=== PATIENT | male | born 1955 | race Hispanic/Latino ===

== ENCOUNTER 2023-11-04 12:46 | Inpatient (IN) | payer BC, MEDICARE, OTHER ==
[2023-11-04] VITALS (8 sets, daily range): BP systolic 96–141; BP diastolic 59–76; PULSE 46–52; RESP 16
[~2023-11-04] VITALS: Ht 170.2 cm; Wt 68.3 kg
[~2023-11-04 12:46] MED LIST: ACET1TAB12 PO; AMLO-257 PO; ASPI-556 PO; CHOL200026 PO; METF-444 PO; METO-408 PO; PRAV10TA39 PO; QUIN40TA37 PO
[2023-11-04 13:15] LABS: BASOPHILS # (AUTO) 0.05 K/uL (0.00-0.20); BASOPHILS % (AUTO) 0.7 % (0.0-5.0); EOSINOPHILS # (AUTO) 0.07 K/uL (0.00-0.70); HEMATOCRIT 42.2 % (42-54); IMMATURE GRANULOCYTE ABSOLUTE 0.02 K/uL (0-1); LYMPHOCYTES # (AUTO) 1.8 K/uL (1.0-4.8); LYMPHOCYTES % (AUTO) 23.8 % (21.0-51.0); MEAN CORPUSCULAR HEMOGLOBIN 30.3 pg (27.0-33.0); MEAN CORPUSCULAR HGB CONC 36.5 g/dL (32.0-36.0); MEAN CORPUSCULAR VOLUME 82.9 fL (79-99); MONOCYTES # (AUTO) 0.6 K/uL (0.1-1.0); NEUTROPHILS # (AUTO) 4.9 K/uL (1.8-7.7); NEUTROPHILS % (AUTO) 66.2 % (40.0-77.0); PLATELET COUNT (AUTO) 176 K/uL (130-400); RED BLOOD CELL COUNT(AUTO) 5.09 MIL/uL (4.50-6.20); RED CELL DISTRIBUTION WIDTH 12.5 % (11.0-15.5); WHITE BLOOD COUNT (AUTO) 7.3 K/uL (4.8-10.8)
[2023-11-04] MEDS: NITROGLYCERIN 0.4 MG SL TAB SL PRN (13:23)
[2023-11-04] MEDS: ASPIRIN 325MG EC TAB PO ONE (13:23)
[2023-11-04 13:47] LABS: BILIRUBIN,TOTAL 0.8 mg/dL (0.2-1.0); POTASSIUM 3.8 mmol/L (3.5-5.1); TOTAL PROTEIN, SERUM 7.7 g/dL (6.0-8.3)
[2023-11-04] MEDS ORDERED: MORPHINE 2 MG SYG IVP PRN (15:00)
[2023-11-04] MEDS: ENOXAPARIN SODIUM 80 MG/0.8 ML SQ ONE (15:46)
[2023-11-04 15:48] LABS: HEMOGLOBIN A1C 7.1 % (4.0-6.0)
[2023-11-04] MEDS ORDERED: ATOR40TA69 PO (16:00)
[2023-11-04] MEDS ORDERED: CLOP75TA32 PO (16:00)
[2023-11-04] MEDS ORDERED: EPLE25TA10 PO (16:00)
[2023-11-04] MEDS ORDERED: LISI40TA9 PO (16:00)
[2023-11-04] MEDS ORDERED: EMPA25TA PO (16:00)
[2023-11-04] MEDS ORDERED: CARV25TA PO (16:00)
[2023-11-04] MEDS ORDERED: IOHEXOL 350 MG/ML 100ML INFUS..BTL IV ONE (19:06)
[2023-11-04] MEDS ORDERED: IOHEXOL-350 50ML VIAL IV ONE (19:06)
[2023-11-04] MEDS ORDERED: MIDAZOLAM HCL 1 MG/ML 2ML VIAL ONE (19:06)
[2023-11-04] MEDS ORDERED: LIDOCAINE HCL 400MG/20ML VIAL ONE (19:06)
[2023-11-04] MEDS ORDERED: HEPARIN 10,000 UNIT/10ML (1,000 UNIT/ML) VIAL ONE (19:07)
[2023-11-04] MEDS ORDERED: VERAPAMIL HCL 2.5 MG/ML VIAL ONE (19:07)
[2023-11-04] MEDS ORDERED: NITROGLYCERIN 50MG VIAL ONE (19:07)
[2023-11-04] MEDS ORDERED: FENTANYL CITRATE PF 50 MCG/1 ML 2ML VIAL ONE (19:13)
[2023-11-04] MEDS: METOPROLOL TARTRATE 25 MG TAB PO SCH (21:00)
[2023-11-04] MEDS: 0.9%NACL 1000ML 1,000 ML IV SCH (21:53)
[2023-11-05 03:17] VITALS: BP 127/68; PULSE 45; RESP 16
[2023-11-05] MEDS ORDERED: POTASSIUM CHLORIDE 20MEQ/100ML 100 ML IV PRN (06:30)
[2023-11-05 06:49] LABS: BASOPHILS # (AUTO) 0.06 K/uL (0.00-0.20); BASOPHILS % (AUTO) 0.6 % (0.0-5.0); EOSINOPHILS # (AUTO) 0.06 K/uL (0.00-0.70); EOSINOPHILS % (AUTO) 0.6 % (0.0-8.0); HEMATOCRIT 42.7 % (42-54); IMMATURE GRANULOCYTE ABSOLUTE 0.02 K/uL (0-1); LYMPHOCYTES # (AUTO) 1.7 K/uL (1.0-4.8); LYMPHOCYTES % (AUTO) 17.4 % (21.0-51.0); MEAN CORPUSCULAR HEMOGLOBIN 29.9 pg (27.0-33.0); MEAN CORPUSCULAR HGB CONC 35.4 g/dL (32.0-36.0); MEAN CORPUSCULAR VOLUME 84.6 fL (79-99); MONOCYTES # (AUTO) 0.9 K/uL (0.1-1.0); MONOCYTES % (AUTO) 9.7 % (3.0-13.0); NEUTROPHILS # (AUTO) 6.9 K/uL (1.8-7.7); NEUTROPHILS % (AUTO) 71.5 % (40.0-77.0); PLATELET COUNT (AUTO) 169 K/uL (130-400); RED BLOOD CELL COUNT(AUTO) 5.05 MIL/uL (4.50-6.20); RED CELL DISTRIBUTION WIDTH 12.8 % (11.0-15.5); WHITE BLOOD COUNT (AUTO) 9.7 K/uL (4.8-10.8)
[2023-11-05 07:00] VITALS: BP 164/78; PULSE 57; RESP 16
[2023-11-05 07:02] LABS: CREATININE 0.8 mg/dL (0.5-1.5); MAGNESIUM 1.7 mg/dL (1.80-2.40); POTASSIUM 3.5 mmol/L (3.5-5.1)
[2023-11-05] MEDS: LISINOPRIL 40 MG TABLET PO SCH (09:30)
[2023-11-05] MEDS: ATORVASTATIN 40 MG TABLET PO SCH (09:30)
[2023-11-05] MEDS: CLOPIDOGREL 75MG TAB PO SCH (09:30)
[2023-11-05] MEDS: ASPIRIN 81MG CHEW TAB PO SCH (09:31)
[2023-11-05 11:00] VITALS: BP 138/78; PULSE 53; RESP 16
[2023-11-05 16:00] VITALS: BP 154/84; PULSE 63; RESP 16
[2023-11-05 19:54] VITALS: BP 145/76; PULSE 75; RESP 18
[2023-11-05 23:59] VITALS: BP 131/74; PULSE 60; RESP 18
[2023-11-06 04:23] VITALS: BP 124/74; PULSE 42; RESP 18
[2023-11-06 04:48] LABS: BASOPHILS # (AUTO) 0.04 K/uL (0.00-0.20); BASOPHILS % (AUTO) 0.5 % (0.0-5.0); EOSINOPHILS # (AUTO) 0.08 K/uL (0.00-0.70); HEMATOCRIT 41.9 % (42-54); IMMATURE GRANULOCYTE ABSOLUTE 0.02 K/uL (0-1); LYMPHOCYTES # (AUTO) 1.9 K/uL (1.0-4.8); LYMPHOCYTES % (AUTO) 22.4 % (21.0-51.0); MEAN CORPUSCULAR HEMOGLOBIN 29.8 pg (27.0-33.0); MEAN CORPUSCULAR VOLUME 82.8 fL (79-99); MONOCYTES # (AUTO) 1.1 K/uL (0.1-1.0); MONOCYTES % (AUTO) 13.2 % (3.0-13.0); NEUTROPHILS # (AUTO) 5.3 K/uL (1.8-7.7); NEUTROPHILS % (AUTO) 62.7 % (40.0-77.0); PLATELET COUNT (AUTO) 182 K/uL (130-400); RED BLOOD CELL COUNT(AUTO) 5.06 MIL/uL (4.50-6.20); RED CELL DISTRIBUTION WIDTH 12.7 % (11.0-15.5); WHITE BLOOD COUNT (AUTO) 8.4 K/uL (4.8-10.8)
[2023-11-06 05:04] LABS: MAGNESIUM 1.9 mg/dL (1.80-2.40); PHOSPHORUS 4.4 mg/dL (2.5-4.9); POTASSIUM 3.8 mmol/L (3.5-5.1)
[2023-11-06 07:00] VITALS: BP 128/72; PULSE 48; RESP 16
[2023-11-06 11:00] VITALS: BP 157/82; PULSE 60; RESP 20
[2023-11-06 16:00] VITALS: BP 154/81; PULSE 54; RESP 20
[2023-11-06 20:00] VITALS: O2SAT 95
[2023-11-06 20:02] VITALS: BP 156/76; PULSE 54; RESP 18
[2023-11-07] VITALS (40 sets, daily range): BP systolic 113–168; BP diastolic 62–101; PULSE 45–80; RESP 9–27; O2SAT 98–100
[2023-11-07 05:30] LABS: BASOPHILS # (AUTO) 0.05 K/uL (0.00-0.20); BASOPHILS % (AUTO) 0.5 % (0.0-5.0); EOSINOPHILS # (AUTO) 0.11 K/uL (0.00-0.70); EOSINOPHILS % (AUTO) 1.1 % (0.0-8.0); HEMATOCRIT 40.3 % (42-54); IMMATURE GRANULOCYTE ABSOLUTE 0.04 K/uL (0-1); LYMPHOCYTES # (AUTO) 1.9 K/uL (1.0-4.8); LYMPHOCYTES % (AUTO) 18.3 % (21.0-51.0); MEAN CORPUSCULAR HEMOGLOBIN 29.9 pg (27.0-33.0); MEAN CORPUSCULAR VOLUME 83.1 fL (79-99); MONOCYTES # (AUTO) 1.3 K/uL (0.1-1.0); MONOCYTES % (AUTO) 12.4 % (3.0-13.0); NEUTROPHILS # (AUTO) 6.9 K/uL (1.8-7.7); NEUTROPHILS % (AUTO) 67.3 % (40.0-77.0); PLATELET COUNT (AUTO) 177 K/uL (130-400); RED BLOOD CELL COUNT(AUTO) 4.85 MIL/uL (4.50-6.20); RED CELL DISTRIBUTION WIDTH 12.7 % (11.0-15.5); WHITE BLOOD COUNT (AUTO) 10.2 K/uL (4.8-10.8)
[2023-11-07 05:50] LABS: POTASSIUM 3.4 mmol/L (3.5-5.1)
[2023-11-07] MEDS: KCL 20 MEQ ERTAB PO PRN (10:01)
[2023-11-07] MEDS: AMLODIPINE 5 MG TAB PO SCH (10:02)
[2023-11-07] MEDS: ENOXAPARIN SODIUM 40 MG/0.4 ML SYRINGE SQ SCH (10:03)
[2023-11-07] MEDS: METOPROLOL TARTRATE 1 MG/ML 5ML VIAL IV ONE (12:24)
[2023-11-07] MEDS: NITROGLYCERIN 50MG/D5W 250ML 250 BOT IV SCH (13:43)
[2023-11-07] MEDS: HEPARIN 5,000 UNIT VIAL IV PRN (14:24)
[2023-11-08] VITALS (98 sets, daily range): BP systolic 91–161; BP diastolic 50–96; PULSE 50–87; RESP 10–50; O2SAT 98–99
[2023-11-08 04:49] LABS: BASOPHILS # (AUTO) 0.05 K/uL (0.00-0.20); BASOPHILS % (AUTO) 0.4 % (0.0-5.0); EOSINOPHILS # (AUTO) 0.04 K/uL (0.00-0.70); EOSINOPHILS % (AUTO) 0.3 % (0.0-8.0); HEMATOCRIT 41.6 % (42-54); IMMATURE GRANULOCYTE ABSOLUTE 0.04 K/uL (0-1); LYMPHOCYTES # (AUTO) 2.2 K/uL (1.0-4.8); MEAN CORPUSCULAR HEMOGLOBIN 30.1 pg (27.0-33.0); MEAN CORPUSCULAR HGB CONC 36.3 g/dL (32.0-36.0); MONOCYTES # (AUTO) 1.6 K/uL (0.1-1.0); MONOCYTES % (AUTO) 13.8 % (3.0-13.0); NEUTROPHILS # (AUTO) 7.7 K/uL (1.8-7.7); NEUTROPHILS % (AUTO) 66.2 % (40.0-77.0); PLATELET COUNT (AUTO) 193 K/uL (130-400); RED BLOOD CELL COUNT(AUTO) 5.01 MIL/uL (4.50-6.20); RED CELL DISTRIBUTION WIDTH 12.7 % (11.0-15.5); WHITE BLOOD COUNT (AUTO) 11.7 K/uL (4.8-10.8)
[2023-11-08 05:12] LABS: CREATININE 0.8 mg/dL (0.5-1.5); POTASSIUM 3.5 mmol/L (3.5-5.1)
[2023-11-08] MEDS: POTASSIUM CHLORIDE 10% ELIXIR 20 MEQ/15 ML UDCUP PO PRN (08:04)
[2023-11-08] MEDS: MAGNESIUM 2GM PREMIX 50ML 50 ML IV PRN (08:09)
[2023-11-08] MEDS: DOCUSATE NA 100MG/10ML UDCUP PO ONE (11:12)
[2023-11-08] MEDS: HEPARIN 25,000 UNITS/250ML D5W 250 ML IV SCH (11:20)
[2023-11-08 17:11] LABS: INR 0.99 (0.85-1.15); PROTHROMBIN TIME 11.5 SEC (9.6-11.6)
[2023-11-08 17:36] LABS: PARTIAL THROMBOPLASTIN TIME 45.8 SEC (26.3-35.5)
[2023-11-08] MEDS: HEPARIN 5,000 UNIT VIAL IV STA (17:53)
[2023-11-08] MEDS: METOPROLOL TARTRATE 25 MG TAB PO SCH (20:08)
[2023-11-09] VITALS (77 sets, daily range): BP systolic 106–174; BP diastolic 57–124; PULSE 54–86; RESP 12–75; O2SAT 96–99
[2023-11-09 07:32] LABS: MEAN CORPUSCULAR HEMOGLOBIN 30.3 pg (27.0-33.0); MEAN CORPUSCULAR HGB CONC 35.6 g/dL (32.0-36.0); MEAN CORPUSCULAR VOLUME 85.2 fL (79-99); PLATELET COUNT (AUTO) 196 K/uL (130-400); RED BLOOD CELL COUNT(AUTO) 4.58 MIL/uL (4.50-6.20); RED CELL DISTRIBUTION WIDTH 12.7 % (11.0-15.5); WHITE BLOOD COUNT (AUTO) 9.9 K/uL (4.8-10.8)
[2023-11-09 07:39] LABS: CREATININE 0.9 mg/dL (0.5-1.5); POTASSIUM 3.6 mmol/L (3.5-5.1)
[2023-11-09 08:12] LABS: EOSINOPHILS % (MANUAL) 2 % (1-6); LYMPHOCYTES % (MANUAL) 20 % (22-44); MAN.DIFF COMMENT-IMPRESSION MANUAL DIFFERENTIAL; MONOCYTES % (MANUAL) 7 % (2-9); PLATELET MORPHOLOGY COMMENT ADEQUATE; REACTIVE LYMPHOCYTES 2 % (0-0); SEGMENTED NEUTROPHILS % 69 % (40-70); TOTAL CELLS COUNTED 100
[2023-11-09] MEDS: POLYETHYLENE GLYCOL 3350 17 GM POWD.PACK PO SCH (08:17)
[2023-11-09] MEDS: MORPHINE 2 MG SYG ONE (18:58)
[2023-11-10] VITALS (80 sets, daily range): BP systolic 112–161; BP diastolic 44–94; PULSE 61–92; RESP 7–34; O2SAT 97–99
[2023-11-10] MEDS: ACETAMINOPHEN 500 MG TABLET PO PRN (05:19)
[2023-11-10 09:39] LABS: HEMATOCRIT 36.7 % (42-54); MEAN CORPUSCULAR HGB CONC 36.5 g/dL (32.0-36.0); MEAN CORPUSCULAR VOLUME 82.3 fL (79-99); PLATELET COUNT (AUTO) 225 K/uL (130-400); RED BLOOD CELL COUNT(AUTO) 4.46 MIL/uL (4.50-6.20); RED CELL DISTRIBUTION WIDTH 12.7 % (11.0-15.5); WHITE BLOOD COUNT (AUTO) 10.9 K/uL (4.8-10.8)
[2023-11-10 09:48] LABS: CREATININE 0.9 mg/dL (0.5-1.5); POTASSIUM 3.5 mmol/L (3.5-5.1)
[2023-11-10 10:13] LABS: BAND NEUTROPHILS % (MANUAL) 3 % (0-2); BASOPHILS % (MANUAL) 1 % (0-2); LYMPHOCYTES % (MANUAL) 17 % (22-44); MAN.DIFF COMMENT-IMPRESSION MANUAL DIFFERENTIAL; MONOCYTES % (MANUAL) 13 % (2-9); PLATELET MORPHOLOGY COMMENT ADEQUATE; SEGMENTED NEUTROPHILS % 66 % (40-70); TOTAL CELLS COUNTED 100; WBC MORPHOLOGY CONSISTENT W/DIFF
[2023-11-10] MEDS ORDERED: INDO50CA98 PO (12:47)
[2023-11-10] MEDS: KCL 20 MEQ ERTAB PO ONE (15:44)
[2023-11-10 16:30] LABS: ABG HCO3 23.1 mmol/L (21.0-28.0); ABG OXYGEN SATURATION 96.9 % (95.0-99.0); ABG PCO2 33 mmHg (35-48); ABG PH 7.459 (7.35-7.450); PO2, ARTERIAL BG 84.8 mmHg (83.0-108.0); VENT MODE, BG RA (ROOM AIR)
[2023-11-11] VITALS (96 sets, daily range): BP systolic 104–154; BP diastolic 59–93; PULSE 59–93; RESP 9–39; O2SAT 96–97
[2023-11-11 05:40] LABS: HEMATOCRIT 35.2 % (42-54); MEAN CORPUSCULAR HEMOGLOBIN 30.1 pg (27.0-33.0); MEAN CORPUSCULAR HGB CONC 35.8 g/dL (32.0-36.0); RED BLOOD CELL COUNT(AUTO) 4.19 MIL/uL (4.50-6.20); RED CELL DISTRIBUTION WIDTH 12.7 % (11.0-15.5); WHITE BLOOD COUNT (AUTO) 9.5 K/uL (4.8-10.8)
[2023-11-11 06:15] LABS: ALBUMIN 3.1 g/dL (3.5-5.0); MAGNESIUM 2.1 mg/dL (1.80-2.40); POTASSIUM 4.3 mmol/L (3.5-5.1); TOTAL PROTEIN, SERUM 7.4 g/dL (6.0-8.3)
[2023-11-11] MEDS ORDERED: CEFAZOLIN SODIUM 2 GM VIAL IVPB SCH (08:30)
[2023-11-12] VITALS (92 sets, daily range): BP systolic 105–160; BP diastolic 62–82; PULSE 52–80; RESP 10–36; O2SAT 97–98
[2023-11-12 04:10] LABS: HEMATOCRIT 34.5 % (42-54); MEAN CORPUSCULAR HEMOGLOBIN 29.9 pg (27.0-33.0); MEAN CORPUSCULAR HGB CONC 35.7 g/dL (32.0-36.0); MEAN CORPUSCULAR VOLUME 83.7 fL (79-99); RED BLOOD CELL COUNT(AUTO) 4.12 MIL/uL (4.50-6.20); RED CELL DISTRIBUTION WIDTH 12.3 % (11.0-15.5); WHITE BLOOD COUNT (AUTO) 9.3 K/uL (4.8-10.8)
[2023-11-12 04:21] LABS: PROTHROMBIN TIME 11.6 SEC (9.6-11.6)
[2023-11-12 04:23] LABS: CREATININE 0.9 mg/dL (0.5-1.5); PARTIAL THROMBOPLASTIN TIME 55.9 SEC (26.3-35.5); POTASSIUM 3.6 mmol/L (3.5-5.1); TOTAL PROTEIN, SERUM 7.5 g/dL (6.0-8.3)
[2023-11-12] MEDS ORDERED: AMINOCAPROIC ACID 5,000MG VIAL 15,000 MG in 0.9% NACL 500ML IV.SOLN 420 ML IV PRN (10:00)
[2023-11-12] MEDS ORDERED: NOREPINEPHRIN 8MG/250ML NS 250 ML IV PRN (10:00)
[2023-11-12] MEDS ORDERED: EPINEPHRINE PF 1MG (1:1,000) 10 MG in 0.9% NACL 250ML 240 ML IV PRN (10:00)
[2023-11-12] MEDS ORDERED: PAPAVERINE HCL 30 MG/ML 2ML VIAL ONE (13:26)
[2023-11-12] MEDS ORDERED: CEFAZOLIN SODIUM 1 GM VIAL ONE (13:26)
[2023-11-12] MEDS ORDERED: NITROGLYCERIN 50MG/D5W 250ML 1 BOT ONE (13:59)
[2023-11-13] VITALS (97 sets, daily range): BP systolic 83–176; BP diastolic 39–107; PULSE 49–94; RESP 4–25; TEMP 93.3–98.8; O2SAT 97–100
[2023-11-13 05:58] LABS: CREATININE 0.8 mg/dL (0.5-1.5); HEMATOCRIT 35.8 % (42-54); MAGNESIUM 2.2 mg/dL (1.80-2.40); MEAN CORPUSCULAR HEMOGLOBIN 30.1 pg (27.0-33.0); MEAN CORPUSCULAR HGB CONC 35.8 g/dL (32.0-36.0); MEAN CORPUSCULAR VOLUME 84.2 fL (79-99); RED BLOOD CELL COUNT(AUTO) 4.25 MIL/uL (4.50-6.20); RED CELL DISTRIBUTION WIDTH 12.3 % (11.0-15.5); WHITE BLOOD COUNT (AUTO) 8.7 K/uL (4.8-10.8)
[2023-11-13] MEDS ORDERED: EPINEPHRINE PF 1MG (1:1,000) 1 MG/ML AMP ONE (07:46)
[2023-11-13] MEDS ORDERED: PROTAMINE SULFATE 10 MG/ML 25ML VIAL IV ONE (07:46)
[2023-11-13] MEDS ORDERED: NOREPINEPHRINE BITARTRATE 1 MG/1 ML ML IV ONE (07:46)
[2023-11-13] MEDS ORDERED: LIDOCAINE PF 100MG/5ML (2%) SYRINGE 5ML ONE (07:46)
[2023-11-13] MEDS ORDERED: HEPARIN 10,000 UNIT/10ML (1,000 UNIT/ML) VIAL ONE ×2 (07:46→08:31)
[2023-11-13] MEDS ORDERED: FENTANYL CITRATE PF 50 MCG/1 ML 20ML VIAL IJ ONE (07:46)
[2023-11-13] MEDS ORDERED: SODIUM BICARB 50MEQ 50ML VIAL 200 ML ONE (07:46)
[2023-11-13] MEDS ORDERED: MIDAZOLAM HCL 1 MG/ML 2ML VIAL ONE ×2 (07:47→10:58)
[2023-11-13] MEDS ORDERED: GLYCOPYRROLATE 0.2 MG/ML 5 ML VIAL ONE (07:47)
[2023-11-13] MEDS ORDERED: ROCURONIUM BROMIDE 10MG/1ML 5ML VL ONE (07:47)
[2023-11-13] MEDS ORDERED: PROPOFOL 10 MG/ML 20ML VIAL IV ONE (07:47)
[2023-11-13] MEDS ORDERED: SODIUM BICARB 50MEQ 50ML VIAL 50 ML ONE (08:30)
[2023-11-13] MEDS ORDERED: MAGNESIUM HYDROXIDE 30 ML/UDCUP PO PRN (08:30)
[2023-11-13] MEDS: CEFAZOLIN SODIUM 2 GM VIAL IVPB ONE (08:35)
[2023-11-13] MEDS ORDERED: POTASSIUM PHOS 15 mMOL+NS250ML 250 ML IV PRN (09:00)
[2023-11-13] MEDS ORDERED: ONDANSETRON 4MG INJ IV PRN (09:00)
[2023-11-13] MEDS ORDERED: ACETAMINOPHEN 650 MG SUPPOSITORY RC PRN (09:00)
[2023-11-13] MEDS ORDERED: GLUCAGON 1MG KIT 1 MG ML IM PRN (09:00)
[2023-11-13] MEDS: CEFAZOLIN SODIUM 1 GM VIAL IRRIG ONE (09:00)
[2023-11-13] MEDS ORDERED: 0.9%NACL 10ML VIAL IVP PRN (09:00)
[2023-11-13] MEDS ORDERED: AMINOCAPROIC ACID 5,000MG VIAL 15,000 MG in 0.9% NACL 250ML 250 ML IV SCH (09:00)
[2023-11-13] MEDS ORDERED: ALBUMIN (HUMAN) 5% 250 ML IV PRN (09:00)
[2023-11-13] MEDS ORDERED: PROPOFOL 1000 MG/100 ML 100 ML IV PRN (09:00)
[2023-11-13] MEDS ORDERED: DEXTROSE 50%-WATER 50 ML DISP.SYRIN IV PRN (09:00)
[2023-11-13] MEDS: PAPAVERINE HCL 30 MG/ML 2ML VIAL IRRIG ONE (09:00)
[2023-11-13] MEDS ORDERED: NOREPINEPHRINE BITARTRATE 8 MG in DEXTROSE 5%-WATER 250 ML IV PRN (09:00)
[2023-11-13] MEDS ORDERED: MORPHINE 2 MG SYG IV PRN ×2 (09:00)
[2023-11-13] MEDS ORDERED: ACETAMINOPHEN 325 MG TAB PO PRN (09:00)
[2023-11-13] MEDS ORDERED: 0.9% NACL 500ML IV.SOLN 500 ML IV SCH (09:00)
[2023-11-13] MEDS ORDERED: POTASSIUM CHLORIDE 10MEQ/100ML 100 ML IV PRN (09:00)
[2023-11-13 09:09] LABS: ABG BASE EXCESS -4.8 mmol/L (-2.0-3.0); ABG HCO3 21.3 mmol/L (21.0-28.0); ABG OXYGEN SATURATION 99.6 % (95.0-99.0); ABG PCO2 43 mmHg (35-48); CARBON MONOXIDE 0.3; DEVICE COMMENT 1; HHb 0.4; PO2, ARTERIAL BG 471.2 mmHg (83.0-108.0)
[2023-11-13] MEDS ORDERED: DEXMEDETOMIDINE HCL 200 MCG/2 ML VIAL IV ONE ×2 (10:20→10:23)
[2023-11-13] MEDS ORDERED: AMIODARONE 150MG VIAL ONE ×2 (10:24→10:29)
[2023-11-13] MEDS ORDERED: MAGNESIUM SULFATE 4.06 MEQ/ML ***TPN USE ONLY IJ ONE (10:30)
[2023-11-13] MEDS ORDERED: KETAMINE 50MG/ML SYRINGE 50 MG/ML DISP.SYRIN ONE (10:54)
[2023-11-13 10:58] LABS: ABG BASE EXCESS -10.4 mmol/L (-2.0-3.0); ABG HCO3 15.9 mmol/L (21.0-28.0); ABG OXYGEN SATURATION 99.5 % (95.0-99.0); ABG PCO2 37 mmHg (35-48); ABG PH 7.255 (7.35-7.450); CARBON MONOXIDE 0.3; DEVICE COMMENT 3; HHb 0.5; PO2, ARTERIAL BG 337.7 mmHg (83.0-108.0)
[2023-11-13] MEDS ORDERED: PHARMACY COMMUNICATION MISC SCH (11:00)
[2023-11-13] MEDS ORDERED: SODIUM BICARB 50MEQ 50ML VIAL 100 ML ONE (11:02)
[2023-11-13] MEDS ORDERED: PROTAMINE SULFATE 10 MG/ML 5 ML VIAL ONE (11:06)
[2023-11-13 11:28] LABS: ABG BASE EXCESS 3.7 mmol/L (-2.0-3.0); ABG HCO3 28.5 mmol/L (21.0-28.0); ABG OXYGEN SATURATION 98.7 % (95.0-99.0); ABG PCO2 44 mmHg (35-48); ABG PH 7.427 (7.35-7.450); CARBON MONOXIDE 0.2; HHb 1.3; PO2, ARTERIAL BG 328.3 mmHg (83.0-108.0); VENT MODE, BG SIMV (ROOM AIR)
[2023-11-13 11:42] LABS: HEMATOCRIT 25.8 % (42-54); MEAN CORPUSCULAR HEMOGLOBIN 30.3 pg (27.0-33.0); RED BLOOD CELL COUNT(AUTO) 3.07 MIL/uL (4.50-6.20); RED CELL DISTRIBUTION WIDTH 12.1 % (11.0-15.5); WHITE BLOOD COUNT (AUTO) 19.5 K/uL (4.8-10.8)
[2023-11-13 11:53] LABS: INR 1.19 (0.85-1.15); PROTHROMBIN TIME 13.7 SEC (9.6-11.6)
[2023-11-13 11:56] LABS: CREATININE 0.8 mg/dL (0.5-1.5); MAGNESIUM 2.3 mg/dL (1.80-2.40); PHOSPHORUS 6.1 mg/dL (2.5-4.9)
[2023-11-13 12:08] LABS: ABG HCO3 24.1 mmol/L (21.0-28.0); ABG OXYGEN SATURATION 99.1 % (95.0-99.0); ABG PCO2 47 mmHg (35-48); ABG PH 7.331 (7.35-7.450); CARBON MONOXIDE 0.3; HHb 0.9; VENT MODE, BG SIMV (ROOM AIR)
[2023-11-13] MEDS: POTASSIUM CHLORIDE 20MEQ/100ML 100 ML IV ONE ×2 (12:16→12:21)
[2023-11-13] MEDS: INSULIN REGULAR, HUMAN 3ML 100 UNIT in 0.9%NACL 100ML 99 ML IV SCH (12:18)
[2023-11-13] MEDS: SODIUM BICARB 50MEQ 50ML VIAL IV PRN (12:19)
[2023-11-13] MEDS: 0.9%NACL 1000ML 1,000 ML IV SCH (12:19)
[2023-11-13] MEDS: ASPIRIN 81MG CHEW TAB NG ONE (12:55)
[2023-11-13 13:00] LABS: ABG BASE EXCESS -1.4 mmol/L (-2.0-3.0); ABG HCO3 24.2 mmol/L (21.0-28.0); ABG OXYGEN SATURATION 98.3 % (95.0-99.0); ABG PCO2 44 mmHg (35-48); ABG PH 7.359 (7.35-7.450); CARBON MONOXIDE 0.3; HHb 1.7; PO2, ARTERIAL BG 150.3 mmHg (83.0-108.0); VENT MODE, BG SIMV (ROOM AIR)
[2023-11-13] MEDS: FAMOTIDINE 20MG VIAL IV SCH (13:09)
[2023-11-13] MEDS: DOCUSATE SODIUM 100 MG CAP PO ONE (13:09)
[2023-11-13] MEDS: METOPROLOL TARTRATE 1 MG/ML 5ML VIAL IV ONE (13:10)
[2023-11-13] MEDS: MORPHINE 2 MG SYG IVP ONE (13:11)
[2023-11-13] MEDS: CALCIUM GLUC 1GM 1 GM in 0.9%NACL 50ML 50 ML IV PRN (13:16)
[2023-11-13] MEDS ORDERED: LIDOCAINE 2G/250ML 250 ML IV ONE (13:36)
[2023-11-13 14:01] LABS: ABG BASE EXCESS -2.5 mmol/L (-2.0-3.0); ABG HCO3 22.9 mmol/L (21.0-28.0); ABG OXYGEN SATURATION 97.5 % (95.0-99.0); ABG PCO2 42 mmHg (35-48); ABG PH 7.359 (7.35-7.450); CARBON MONOXIDE 0.3; HHb 2.5; PO2, ARTERIAL BG 114.6 mmHg (83.0-108.0); VENT MODE, BG SIMV (ROOM AIR)
[2023-11-13] MEDS: POTASSIUM CHLORIDE 20MEQ/100ML 100 ML IV PRN (14:04)
[2023-11-13] MEDS: CEFAZOLIN SODIUM 2 GM VIAL IVPB SCH (14:05)
[2023-11-13 15:02] LABS: ABG BASE EXCESS 0.8 mmol/L (-2.0-3.0); ABG PCO2 38 mmHg (35-48); ABG PH 7.431 (7.35-7.450); CARBON MONOXIDE 0.3; PO2, ARTERIAL BG 137.2 mmHg (83.0-108.0); VENT MODE, BG SIMV (ROOM AIR)
[2023-11-13 16:32] LABS: ABG OXYGEN SATURATION 98.5 % (95.0-99.0); ABG PCO2 38 mmHg (35-48); ABG PH 7.449 (7.35-7.450); CARBON MONOXIDE 0.3; CPAP, BG 5 cm H2O; HHb 1.5; PO2, ARTERIAL BG 160.5 mmHg (83.0-108.0); VENT MODE, BG CPAP 5 PS 10 (ROOM AIR)
[2023-11-13 17:47] LABS: ABG HCO3 28.5 mmol/L (21.0-28.0); ABG OXYGEN SATURATION 98.3 % (95.0-99.0); ABG PCO2 43 mmHg (35-48); ABG PH 7.443 (7.35-7.450); CARBON MONOXIDE 0.3; HHb 1.7; PO2, ARTERIAL BG 151.1 mmHg (83.0-108.0); VENT MODE, BG CAFM (ROOM AIR)
[2023-11-13] MEDS: TRAMADOL HCL 50 MG TABLET PO PRN (21:14)
[2023-11-14] VITALS (117 sets, daily range): BP systolic 99–197; BP diastolic 47–130; PULSE 60–82; RESP 14–69; TEMP 98–98.8; O2SAT 98–99
[2023-11-14] MEDS: NOREPINEPHRIN 8MG/250ML NS 250 ML IV ONE (01:38)
[2023-11-14] MEDS: LIDOCAINE 2G/250ML 250 ML IV ONE (04:04)
[2023-11-14] MEDS ORDERED: NOREPINEPHRIN 8MG/250ML NS 250 ML IV PRN (04:30)
[2023-11-14] MEDS ORDERED: LIDOCAINE 2G/250ML 250 ML IV PRN (04:30)
[2023-11-14 04:53] LABS: HEMATOCRIT 28.8 % (42-54); MEAN CORPUSCULAR HEMOGLOBIN 30.2 pg (27.0-33.0); MEAN CORPUSCULAR HGB CONC 34.7 g/dL (32.0-36.0); RED BLOOD CELL COUNT(AUTO) 3.31 MIL/uL (4.50-6.20); RED CELL DISTRIBUTION WIDTH 12.8 % (11.0-15.5)
[2023-11-14 05:05] LABS: INR 1.1 (0.85-1.15); PROTHROMBIN TIME 12.7 SEC (9.6-11.6)
[2023-11-14 05:12] LABS: CREATININE 0.8 mg/dL (0.5-1.5); MAGNESIUM 1.7 mg/dL (1.80-2.40); PHOSPHORUS 4.4 mg/dL (2.5-4.9)
[2023-11-14] MEDS: MAGNESIUM 2GM PREMIX 50ML 50 ML IV PRN (06:13)
[2023-11-14] MEDS: FUROSEMIDE 20MG VIAL IV SCH (08:49)
[2023-11-14] MEDS: EPINEPHRINE PF 1MG (1:1,000) 10 MG in 0.9% NACL 250ML 240 ML IV PRN (09:20)
[2023-11-14] MEDS: NITROGLYCERIN 50MG/D5W 250ML 250 BOT IV SCH (18:46)
[2023-11-14] MEDS: METOPROLOL TARTRATE 25 MG TAB PO ONE (20:26)
[2023-11-14] MEDS ORDERED: METOPROLOL TARTRATE 25 MG TAB PO ONE (20:30)
[2023-11-15] VITALS (78 sets, daily range): BP systolic 77–178; BP diastolic 51–92; PULSE 64–82; RESP 15–56; TEMP 98.5–99.1; O2SAT 98–100
[2023-11-15] MEDS: LACTULOSE 20 GM/30 ML UDCUP PO PRN (03:05)
[2023-11-15 06:27] LABS: HEMATOCRIT 27.9 % (42-54); MEAN CORPUSCULAR HEMOGLOBIN 30.1 pg (27.0-33.0); MEAN CORPUSCULAR HGB CONC 34.1 g/dL (32.0-36.0); MEAN CORPUSCULAR VOLUME 88.3 fL (79-99); RED BLOOD CELL COUNT(AUTO) 3.16 MIL/uL (4.50-6.20); RED CELL DISTRIBUTION WIDTH 13.1 % (11.0-15.5); WHITE BLOOD COUNT (AUTO) 14.7 K/uL (4.8-10.8)
[2023-11-15 06:39] LABS: CREATININE 0.8 mg/dL (0.5-1.5); MAGNESIUM 1.7 mg/dL (1.80-2.40); POTASSIUM 3.4 mmol/L (3.5-5.1)
[2023-11-15] MEDS: INSULIN HUMULIN R 100 UNIT/ML 3ML SQ SCH (07:51)
[2023-11-15] MEDS: FUROSEMIDE 20 MG TABLET PO SCH (08:33)
[2023-11-15] MEDS: METOPROLOL TARTRATE 25 MG TAB PO SCH (08:41)
[2023-11-15] MEDS ORDERED: POTASSIUM CHLORIDE 10% ELIXIR 20 MEQ/15 ML UDCUP PO PRN (16:30)
[2023-11-15 17:13] LABS: MAGNESIUM 2.1 mg/dL (1.80-2.40); POTASSIUM 3.3 mmol/L (3.5-5.1)
[2023-11-15] MEDS: POTASSIUM CHLORIDE 20MEQ/100ML 100 ML IV ONE (17:22)
[2023-11-15] MEDS: KCL 20 MEQ ERTAB PO PRN (17:23)
[2023-11-16] VITALS (7 sets, daily range): BP systolic 108–141; BP diastolic 62–78; PULSE 71–83; RESP 18–20; O2SAT 98–100
[2023-11-16 04:41] LABS: MEAN CORPUSCULAR HEMOGLOBIN 29.9 pg (27.0-33.0); MEAN CORPUSCULAR HGB CONC 34.1 g/dL (32.0-36.0); MEAN CORPUSCULAR VOLUME 87.6 fL (79-99); RED BLOOD CELL COUNT(AUTO) 3.31 MIL/uL (4.50-6.20); RED CELL DISTRIBUTION WIDTH 12.7 % (11.0-15.5); WHITE BLOOD COUNT (AUTO) 15.6 K/uL (4.8-10.8)
[2023-11-16 05:00] LABS: ALBUMIN 2.1 g/dL (3.5-5.0); BILIRUBIN,TOTAL 0.8 mg/dL (0.2-1.0); CREATININE 0.7 mg/dL (0.5-1.5); MAGNESIUM 1.9 mg/dL (1.80-2.40); POTASSIUM 3.7 mmol/L (3.5-5.1); TOTAL PROTEIN, SERUM 5.6 g/dL (6.0-8.3)
[2023-11-16] MEDS: ENOXAPARIN SODIUM 30 MG/0.3 ML SQ SCH (10:33)
[2023-11-17] VITALS (8 sets, daily range): BP systolic 120–151; BP diastolic 71–81; PULSE 71–80; RESP 18–20; O2SAT 98–100
[2023-11-17 04:00] LABS: HEMATOCRIT 28.9 % (42-54); MEAN CORPUSCULAR HEMOGLOBIN 30.2 pg (27.0-33.0); MEAN CORPUSCULAR HGB CONC 33.9 g/dL (32.0-36.0); MEAN CORPUSCULAR VOLUME 88.9 fL (79-99); RED BLOOD CELL COUNT(AUTO) 3.25 MIL/uL (4.50-6.20); RED CELL DISTRIBUTION WIDTH 12.4 % (11.0-15.5); WHITE BLOOD COUNT (AUTO) 11.3 K/uL (4.8-10.8)
[2023-11-17 04:19] LABS: BILIRUBIN,TOTAL 0.6 mg/dL (0.2-1.0); CREATININE 0.7 mg/dL (0.5-1.5); MAGNESIUM 1.9 mg/dL (1.80-2.40); TOTAL PROTEIN, SERUM 5.6 g/dL (6.0-8.3)
[2023-11-17 04:47] LABS: POTASSIUM 2.9 mmol/L (3.5-5.1)
[2023-11-17] MEDS: MAGNESIUM 2GM PREMIX 50ML 50 ML IV SCH (08:48)
[2023-11-17] MEDS: TRAMADOL HCL 50 MG TABLET PO PRN (18:22)
[2023-11-18] VITALS (7 sets, daily range): BP systolic 129–133; BP diastolic 66–78; PULSE 67–78; RESP 16–20; O2SAT 99–100
[2023-11-18 04:09] LABS: MEAN CORPUSCULAR HEMOGLOBIN 29.8 pg (27.0-33.0); MEAN CORPUSCULAR HGB CONC 34.6 g/dL (32.0-36.0); MEAN CORPUSCULAR VOLUME 85.9 fL (79-99); RED BLOOD CELL COUNT(AUTO) 3.26 MIL/uL (4.50-6.20); RED CELL DISTRIBUTION WIDTH 12.5 % (11.0-15.5); WHITE BLOOD COUNT (AUTO) 12.7 K/uL (4.8-10.8)
[2023-11-18 04:24] LABS: CREATININE 0.7 mg/dL (0.5-1.5); POTASSIUM 3.4 mmol/L (3.5-5.1)
[2023-11-18] MEDS: POTASSIUM CHLORIDE 10MEQ SR TAB PO ONE (13:00)
== END 2023-11-18 20:14 | DRG 233 ==
LOC: EDH 12:46 → EDHIP 14:37 → 2AH 19:18 → 2CH 11-07 12:23 → 2CV 11-07 23:18 → 2CH 11-09 22:58 → 2BH 11-13 10:40 → 2CV 11-13 10:44 → 3CH 11-13 11:43 → 2CV 11-13 11:48 → 2AH 11-15 18:35
PROVIDERS: ADMIT Internal Medicine; ATTEND Internal Medicine
PROC: 4A023N7 Measurement of Cardiac Sampling and Pressure, Left Heart, Percutaneous Approach (ICD-10-PCS; 2023-11-04)
PROC: B2111ZZ Fluoroscopy of Multiple Coronary Arteries using Low Osmolar Contrast (ICD-10-PCS; 2023-11-04)
PROC: B2151ZZ Fluoroscopy of Left Heart using Low Osmolar Contrast (ICD-10-PCS; 2023-11-04)
PROC: B24BZZ4 Ultrasonography of Heart with Aorta, Transesophageal (ICD-10-PCS; 2023-11-13)
PROC: 02100Z9 Bypass Coronary Artery, One Artery from Left Internal Mammary, Open Approach (ICD-10-PCS; principal; 2023-11-13 08:05)
PROC: 021109W Bypass Coronary Artery, Two Arteries from Aorta with Autologous Venous Tissue, Open Approach (ICD-10-PCS; 2023-11-13 08:05)
PROC: 5A02210 Assistance with Cardiac Output using Balloon Pump, Continuous (ICD-10-PCS; 2023-11-13 08:05)
PROC: 06BQ3ZZ Excision of Left Saphenous Vein, Percutaneous Approach (ICD-10-PCS; 2023-11-13 08:05)
DX: I25.10 Atherosclerotic heart disease of native coronary artery without angina pectoris (principal); I21.4 Non-ST elevation (NSTEMI) myocardial infarction; I49.01 Ventricular fibrillation; D62 Acute posthemorrhagic anemia; I10 Essential (primary) hypertension; E11.9 Type 2 diabetes mellitus without complications; E78.00 Pure hypercholesterolemia, unspecified; E87.70 Fluid overload, unspecified; Z82.49 Family history of ischemic heart disease and other diseases of the circulatory system; Z87.891 Personal history of nicotine dependence; Z90.49 Acquired absence of other specified parts of digestive tract; Z95.5 Presence of coronary angioplasty implant and graft; Z85.038 Personal history of other malignant neoplasm of large intestine
CPT/HCPCS: 36415; 36600; 71045; 80048; 80053; 80061; 82306; 82330; 82435; 82550; 82803; 82947; 82948; 83036; 83605; 83690; 83735; 83880; 84100; 84132; 84295; 84443; 84484; 85018; 85025; 85027; 85347; 85610; 85730; 86850; 86900; 86901; 86923; 87641; 93005; 93306; 93312; 93318; 93356; 93458; 93880; 94002; 94150; 99156; 99157; A7048; C1769; G0378; J0171; J0282; J0610; J0690; J1644; J1650; J1815; J1940; J2001; J2250; J2270; J2440; J2704; J2720; J3010; J3475; J3480; J3490; J7030; J7040; J7050; Q9967; A4315; A4452; A4510; A4600; A4649; A4930; A6204; A6219; C1713; C1776; C1894; G0168; Q9965

== ENCOUNTER 2025-09-03 17:59 | Emergency (ER) | payer OTHER ==
[~2025-09-03] VITALS: Ht 170.2 cm; Wt 71.3 kg
[~2025-09-03 17:59] MED LIST changes: -ACET1TAB12 PO; -ASPI-556 PO; +ATOR40TA69 PO; +CARV25TA PO; +CLOP75TA32 PO; +EMPA25TA PO; +EPLE25TA24 PO; +INDO50CA98 PO; +LISI40TA15 PO; -METO-408 PO; -PRAV10TA39 PO; -QUIN40TA37 PO
[2025-09-03 18:02] VITALS: BP 188/96; PULSE 63; RESP 18; TEMP 97.5
--- NOTE | 2025-09-03 19:18 | HMCIMG ---
EXAM: CT Cervical Spine Without IV contrast. CLINICAL HISTORY: History of fall. TECHNIQUE: Axial computed tomography images of the cervical spine without intravenous contrast. Sagittal and coronal reformatted images were generated. COMPARISON: None provided. FINDINGS: ALIGNMENT: Straightening of the cervical spine. 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 Disc osteophyte complex with ossification of the posterior longitudinal ligament at the C4-C5 level, indenting the anterior epidural space, causing narrowing of the bilateral neural foramina, which is further compounded by facet joint arthropathy and uncovertebral joint hypertrophy. Disc osteophyte complexes at C5-C6, C6-C7, and C7-T1 levels indent the anterior epidural space, causing narrowing of the bilateral neural foramina, which is further compounded by facet joint arthropathy and uncovertebral joint hypertrophy. Ossification of the posterior ligament complex at the craniocervical junction. SOFT TISSUES: The prevertebral soft tissues are within normal limits. BONES: No acute fracture or aggressive appearing osseous lesion. IMPRESSION: 1. No acute osseous injury. 2. Multilevel cervical spondylosis, most severe at C3-C4 and C4-C5 levels with spinal canal and bilateral neural foraminal narrowing. 3. Straightening of the cervical spine. /[place]
--- NOTE | 2025-09-03 19:20 | HMCIMG ---
STUDY CT Head Without IV contrast. HISTORY Fall. TECHNIQUE Axial computed tomography images of the head were obtained without intravenous contrast. COMPARISON None provided. FINDINGS BRAIN There is age-appropriate diffuse cerebral volume loss with prominence of the ventricles and cortical sulci. Scattered small hypodense foci are present in the bilateral frontoparietal deep and subcortical white matter, compatible with chronic small vessel ischemic change. No acute intracranial hemorrhage, mass lesion, territorial infarct, midline shift, or extra-axial fluid collection is identified. VENTRICLES AND CSF SPACES Ventricular size and configuration are within expected limits for the degree of cerebral volume loss. No hydrocephalus is present. ORBITS Globes and orbital contents are unremarkable. SINUSES AND MASTOIDS The visualized paranasal sinuses and mastoid air cells are clear without fluid level or significant mucosal thickening. CALVARIUM AND SKULL BASE No acute calvarial or skull base fracture or aggressive osseous lesion is identified. EXTRACRANIAL SOFT TISSUES Scalp contusion is present in the right frontal region without associated radiopaque foreign body or underlying fracture. IMPRESSION * No acute intracranial hemorrhage, mass effect, or territorial infarct. * Age-appropriate diffuse cerebral volume loss with chronic small vessel ischemic changes in the bilateral frontoparietal white matter. * Right frontal scalp contusion without underlying calvarial fracture. /[place]
[2025-09-03] MEDS: LIDOCAINE HCL 1% 20 ML VIAL INJ ONE (20:49)
[2025-09-03] MEDS ORDERED: CEPH500B PO (21:01)
--- NOTE | 2025-09-03 21:01 | ERN ---
ED Note History of Present Illness Stated Complaint: FALL Chief Complaint: Mechanical Fall Time Seen by MD: 18:08 Time Seen by Midlevel: 18:08 Dictation: The patient is a 70-year-old male with a history of CAD, hypothyroidism, diabetes who presents to the emergency department after an accidental fall about 2 hours ago. Patient reports that his grandson got in the way causing him to fall forward into a sidewalk. Patient hit the front of h his head. In landed on his knees. Patient denies any LOC, denies any nausea or vomiting, denies any neck pain, denies any chest pain back pain abdominal pain or any other injury. Denies any use of blood thinners Allergies: Coded Allergies: No Known Allergies (Unverified Allergy, Unknown, 12/18/15) Home Meds Active Scripts Cephalexin Monohydrate (Keflex) 500 Mg Cap, 500 MG PO QID for 7 Days, #28 CAP Prov:ESTEBAN VELIZ [employer] 09/03/25 Reported Medications Indomethacin (Indomethacin) 50 Mg Capsule, 50 MG PO AD, CAP 11/10/23 Carvedilol (Carvedilol) 25 Mg Tablet, 25 MG PO DAILY, TAB 11/04/23 Eplerenone (Eplerenone) 25 Mg Tablet, 25 MG PO AM, TAB 11/04/23 Clopidogrel Bisulfate (Clopidogrel) 75 Mg Tablet, 75 MG PO DAILY, TAB 11/04/23 Lisinopril (Lisinopril) 40 Mg Tablet, 40 MG PO DAILY, TAB 11/04/23 Atorvastatin Calcium (LIPITOR) 80 Mg Tablet, 80 MG PO AM, #0.5 TAB 11/04/23 Empagliflozin (Jardiance) 25 Mg Tablet, 25 MG PO DAILY for TAKE ONE HALF PO , TAB 11/04/23 Cholecalciferol (Vitamin D3) (Vitamin D3) 2,000 Unit Tablet, 2000 UNITS PO AM, TAB 12/18/15 Metformin HCl (Metformin HCl) 500 Mg Tablet, 500 MG PO BID, TAB 12/18/15 Amlodipine Besylate (Amlodipine Besylate) 5 Mg Tablet, 5 MG PO BID, TAB 12/18/15 Past Medical History Past Medical History: Cancer, Diabetes-Type II, High Cholesterol, Heart Disease, Hypertension Additional Past Medical Hx: COLON CANCER 8 YEARS AGO Surgical History: CABG, Other Surgical History Other: COLON RESECTION Social History: Other RN Note Reviewed/Agreed w/PFSH: Yes Review of System Dictation Constitutional: Negative for fever,chills, and weight loss Eyes: Negative for injury, pain,redness, and discharge ENT: Negative for injury,pain or swelling Cardiovascular: Negative for chest pain, palpitations, and edema Respiratory: Negative for shortness of breath, cough, and wheezing, Abdomen/GI: Negative for abdominal pain, nausea, vomiting, diarrhea, and constipation Back: Negative for injury and pain : Negative for injury, bleeding and discharge MS/Extremity: Negative for injury and deformity Skin: Positive for skin laceration Neuro: Negative for headache, weakness, numbness, tingling, and seizure Psych: Negative for suicide ideation, homicidal ideation, and hallucinations Initial Vital Sign VS Vital Signs Date Time Temp Pulse Resp B/P (MAP) Pulse Ox O2 Delivery O2 Flow Rate FiO2 09/03/25 18:02 97.5 63 18 188/96 100 Room Air 0 Physical Exam Dictation Vital Signs reviewed General Appearance: Alert, oriented x 3, no acute distress, well developed, nourished. Head and Face: non-traumatic. Eyes: PERRL, pink conjunctivas, eyelid no trauma, anterior chamber with arcus senilis. Ears: Pinnas intact and no signs of trauma or erythema ear canals clear and no discharge TM no erythema Nose: No discharge, no bleeding. Oropharynx: Mouth normal, tongue pink. pharynx clear,no erythema, tonsils no exudates, no abscesses noted, mucous membrane moist Neck: Supple, non-tender, no thyromegaly, no masses, no JVD, no bruits Breast:Deferred Chest:No tenderness, no crepitus, no paradoxical movement, no retractions Lungs:Clear, well-ventilated, symmetric, no rales, no wheezing, no rhonchi, no stridor, good breath sounds bilaterally Heart: Regular rate, regular rhythm, no murmur, no gallops Vascular: no peripheral edema, Abdomen: Soft, positive bowel sounds, nondistended, no guarding, nontender, no rebound, no masses no hepatomegaly, no splenomegaly, no Leal's sign, no hernias. Rectal: Deferred Genital: Deferred Neurological: Normal speech, motor function intact, sensory function intact Musculoskeletal: Neck nontender, full range of motion, back nontender, full range of motion, Extremities: nontender, full range of motion, small abrasions to bilateral knees Skin: Color pink, dry, no turgor, no rash no contusions. 1.5 cm laceration to right forehead, large 4 cm in diameter abrasion Lymphatic: Deferred Results (Laboratory/Radiology) Laboratory/Radiology REASON: fall ORDERING PHYSICIAN: ESTEBAN VELIZ [employer] PROCEDURE: HEAD WO - CT HEAD/BRAIN W/O CONTRAST STUDY CT Head Without IV contrast. HISTORY Fall. TECHNIQUE Axial computed tomography images of the head were obtained without intravenous contrast. COMPARISON None provided. FINDINGS BRAIN There is age-appropriate diffuse cerebral volume loss with prominence of the ventricles and cortical sulci. Scattered small hypodense foci are present in the bilateral frontoparietal deep and subcortical white matter, compatible with chronic small vessel ischemic change. No acute intracranial hemorrhage, mass lesion, territorial infarct, midline shift, or extra-axial fluid collection is identified. VENTRICLES AND CSF SPACES Ventricular size and configuration are within expected limits for the degree of cerebral volume loss. No hydrocephalus is present. ORBITS Globes and orbital contents are unremarkable. SINUSES AND MASTOIDS The visualized paranasal sinuses and mastoid air cells are clear without fluid level or significant mucosal thickening. CALVARIUM AND SKULL BASE No acute calvarial or skull base fracture or aggressive osseous lesion is identified. EXTRACRANIAL SOFT TISSUES Scalp contusion is present in the right frontal region without associated radiopaque foreign body or underlying fracture. IMPRESSION * No acute intracranial hemorrhage, mass effect, or territorial infarct. * Age-appropriate diffuse cerebral volume loss with chronic small vessel ischemic changes in the bilateral frontoparietal white matter. * Right frontal scalp contusion without underlying calvarial fracture. /[place] REASON: fall ORDERING PHYSICIAN: ESTEBAN VELIZ [facility] PROCEDURE: C SPIN WO - CT CERVICAL SPINE W/O CONTRAST EXAM: CT Cervical Spine Without IV contrast. CLINICAL HISTORY: History of fall. TECHNIQUE: Axial computed tomography images of the cervical spine without intravenous contrast. Sagittal and coronal reformatted images were generated. COMPARISON: None provided. FINDINGS: ALIGNMENT: Straightening of the cervical spine. 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 Disc osteophyte complex with ossification of the posterior longitudinal ligament at the C4-C5 level, indenting the anterior epidural space, causing narrowing of the bilateral neural foramina, which is further compounded by facet joint arthropathy and uncovertebral joint hypertrophy. Disc osteophyte complexes at C5-C6, C6-C7, and C7-T1 levels indent the anterior epidural space, causing narrowing of the bilateral neural foramina, which is further compounded by facet joint arthropathy and uncovertebral joint hypertrophy. Ossification of the posterior ligament complex at the craniocervical junction. SOFT TISSUES: The prevertebral soft tissues are within normal limits. BONES: No acute fracture or aggressive appearing osseous lesion. IMPRESSION: 1. No acute osseous injury. 2. Multilevel cervical spondylosis, most severe at C3-C4 and C4-C5 levels with spinal canal and bilateral neural foraminal narrowing. 3. Straightening of the cervical spine. /[place] Labs Reviewed?: Yes ED Course ED Course Orders Procedure Category Date Status Time Ct Head/Brain W/O CT 09/03/25 Resulted Contrast 18:18 Ct Cervical Spine W/O CT 09/03/25 Resulted Contrast 18:18 Knee 3 Vw Bilateral RAD 09/03/25 Taken 18:18 Tetanus,Diphtheria PHA 09/03/25 Complete Tox [Adult] (Diphther 18:30 Acetaminophen 500mg PHA 09/03/25 Complete Tab (Tylenol 500mg T 18:30 Wound Care (Er) CPOE 09/03/25 Transmitted 18:19 Lidocaine Hcl 1% 20ml PHA 09/03/25 Complete Vial (Lidocaine Hc 20:30 Neomy PHA 09/03/25 Complete Sulf/Bacitra/Polymyxin 21:00 Current Medications Medications (Trade) Dose Ordered Sig/Mark Route PRN Reason Start Time Stop Time Status Last Admin Dose Admin Acetaminophen (TYLenol 500MG TAB) 1,000 mg ONCE ONCE PO 09/03/25 18:30 09/03/25 18:31 DC 09/03/25 19:30 Lidocaine HCl (Lidocaine HCl 1% 20ml Vial) 10 ml ONCE ONCE INJ 09/03/25 20:30 09/03/25 20:36 DC Neomycin/ Polymyxin/ Bacitracin (Triple Antibiotic Ointment) 1 appl ONCE ONCE TP 09/03/25 21:00 09/03/25 21:05 DC 09/03/25 21:14 Tetanus/ Diphtheria Toxoids Adsorbed (DiphthERIA-teTANUS TOXOID [ADULT]/ DECAVAC) 0.5 ml ONCE ONCE IM 09/03/25 18:30 09/03/25 18:31 DC Vital Signs Date Time Temp Pulse Resp B/P (MAP) Pulse Ox O2 Delivery O2 Flow Rate FiO2 09/03/25 18:02 97.5 63 18 188/96 100 Room Air 0 Medical Decision Making MDM The patient is a 70-year-old male with a history of CAD, hypothyroidism, diabetes who presents to the emergency department after an accidental fall about 2 hours ago. Patient reports that his grandson got in the way causing him to fall forward into a sidewalk. Patient hit the front of h his head. In landed on his knees. Patient denies any LOC, denies any nausea or vomiting, denies any neck pain, denies any chest pain back pain abdominal pain or any other injury. Denies any use of blood thinners CT head showed no acute hemorrhage, C-spine fracture showed no acute pathology. No obvious fracture seen on knee x-ray. Patient is ambulatory Patient with no neck pain, small laceration about 1.5 cm to right forehead, large skin abrasion about 4 cm in diameter. Patient's laceration was repaired in wound was cleaned. Patient [facility] Patient otherwise in no acute distress, nontoxic appearance patient will be discharged to follow up with PCP. Differential diagnosis: Intracerebral hemorrhage, concussion, laceration, C- spine fracture, knee contusion Need for hospitalization: Patient does not meet criteria for hospitalization. There are no social concerns with this patient. Procedure Procedure Dictation: Time and Date Performed:09/03/2025 2100 INDICATION: Laceration Location: Right forehead Informed consent was obtained. Pre-procedure time out was obtained. Anesthetic: 1% lidocaine Manual prep of skin and wound was done with hibiclens. Foreign Body: NO foreign bodies were identified. Length Repaired: 1.5 cm Suture used: Three nylon # of simple sutures: To Aseptic technique was used during the entire procedure. Wound Location: face Wound Length (cm): 1 Wound's Depth, Shape: linear Wound Explored: clean Betadine Prep?: Yes Anesthesia: 1% Lidocaine Volume Anesthetic (ccs): 7 Wound Debrided: minimal Wound Repaired With: sutures Suture Size/Type: 3:0, nylon Number of Sutures: 2 DX & DISP Disposition: Discharge Departure Impression: Primary Impression: Ground-level fall Additional Impressions: Abrasion of forehead, Forehead laceration Condition: Stable Scripts Cephalexin Monohydrate (Keflex) 500 Mg Cap 500 MG PO QID for 7 Days, #28 CAP Prov: ESTEBAN VELIZP 09/03/25 Additional Instructions: Your CT scan did not show any acute findings.Follow up with the primary doctor in 1-2 days. If you develop severe nausea or vomiting, confusion or if anything worsens please return to ER Keep your stitches clean and dry. Do not put your stitches under water, such as in a bath, pool, or aragon. This can slow healing and raise your chance of getting an infection. Avoid activities or sports that could hurt the area of your stitches for 1-2 weeks. You should call your doctor if you develop any fever, redness or swelling around the cut, or pus draining from the cut. Your 2 sutures will need to be removed in 5-7 days. . FOLLOW-UP WITH PRIMARY CARE PROVIDER IN 1 TO 2 DAYS. TAKE MEDICATIONS DIRECTED HERE IN THE EMERGENCY ROOM. OKAY TO CONTINUE HOME MEDICATIONS UNLESS OTHERWISE DISCUSSED DURING YOUR VISIT IN THE EMERGENCY ROOM TODAY. RETURN TO YOUR NEAREST EMERGENCY ROOM IF SYMPTOMS WORSEN OR IF THERE IS NO IMPROVEMENT. CALL 911 IF YOU NEED IMMEDIATE ASSISTANCE. TAKE TYLENOL [id number] NEEDED AND IF NO CONTRAINDICATIONS ARE PRESENT. INCREASE ORAL HYDRATION. A WOUND CULTURE OR URINE CULTURE WAS ORDERED HERE IN THE EMERGENCY ROOM DEPARTMENT PLEASE FOLLOW-UP WITH PRIMARY CARE PROVIDER AND ADVISE THEM TO GET REPEAT PORTS FROM OUR FACILITY. IF YOU HAD ANY MARTI WRAP/SPLINTS THAT WERE APPLIED HERE, PLEASE DO NOT REMOVE THEM UNTIL YOU SEE YOUR PRIMARY CARE OR SPECIALTY. Referrals: SELF,REFERRAL (PCP) Time of Disposition: 20:57 I have reviewed the case, and I agree with, Diagnosis and Plan ESTEBAN VELIZ Sep 03, 2025 21:01
[2025-09-03] MEDS: NEOMY SULF/BACITRA/POLYMYXIN B 1 EACH PACKET TP ONE (21:14)
--- NOTE | 2025-09-03 23:32 | HMCIMG ---
EXAM: CR Bilateral Knees, 3 Views Each. CLINICAL HISTORY: Fall. COMPARISON: None provided. FINDINGS: BONES: The bones are osteopenic. No evidence of acute fracture or dislocation. JOINTS: Moderate osteoarthritic changes are noted in the medial compartments of both knees, left more than right, characterized by joint space narrowing, marginal osteophyte formation, and subchondral sclerosis. Spiking of the tibial spines and patellar poles is present bilaterally. SOFT TISSUES: No significant soft tissue swelling or joint effusion identified. IMPRESSION: 1.No acute fracture or dislocation. 2.Moderate bilateral medial compartment osteoarthritis, left worse than right, with osteophytes, subchondral sclerosis, and spiking of the tibial spines and patellar poles. /[place]
== END 2025-09-03 21:46 | disposition home or self-care (01) ==
LOC: EDH 17:59
DX: S01.81XA Laceration without foreign body of other part of head, initial encounter (principal); S80.212A Abrasion, left knee, initial encounter; S80.211A Abrasion, right knee, initial encounter; I11.9 Hypertensive heart disease without heart failure; E78.00 Pure hypercholesterolemia, unspecified; E11.9 Type 2 diabetes mellitus without complications; Z79.02 Long term (current) use of antithrombotics/antiplatelets; Z79.84 Long term (current) use of oral hypoglycemic drugs; Z79.899 Other long term (current) drug therapy; Z85.038 Personal history of other malignant neoplasm of large intestine; Z95.1 Presence of aortocoronary bypass graft; W18.39XA Other fall on same level, initial encounter; Y93.89 Activity, other specified; Y92.89 Other specified places as the place of occurrence of the external cause; Y99.8 Other external cause status
CPT/HCPCS: 99284; 70450; 73562; 72125; 12011; J2003; 90714

== ENCOUNTER 2025-09-09 14:02 | Emergency (ER) | payer OTHER ==
[~2025-09-09] VITALS: Ht 170.2 cm; Wt 70.3 kg
[~2025-09-09 14:02] MED LIST changes: +CEPH500B PO
[2025-09-09 14:06] VITALS: BP 134/87; PULSE 81; RESP 18; TEMP 98.1
--- NOTE | 2025-09-09 14:15 | ERN ---
ED Note History of Present Illness Stated Complaint: SUTURE REMOVAL Chief Complaint: Suture/Staple Removal Time Seen by MD: 14:07 Time Seen by Midlevel: 14:07 Dictation: The patient is a 70-year-old male with a history of CAD, hypothyroidism, diabetes who presents to the emergency department for suture removal. Patient had two sutures done on September 03 after an accidental fall. Patient denies any fevers, denies any nausea or vomiting, or any complications from the fall. Allergies: Coded Allergies: No Known Allergies (Unverified Allergy, Unknown, 12/18/15) Home Meds Active Scripts Cephalexin Monohydrate (Keflex) 500 Mg Cap, 500 MG PO QID for 7 Days, #28 CAP Prov:ESTEBAN VELIZ LA[employer]TER 09/03/25 Reported Medications Indomethacin (Indomethacin) 50 Mg Capsule, 50 MG PO AD, CAP 11/10/23 Carvedilol (Carvedilol) 25 Mg Tablet, 25 MG PO DAILY, TAB 11/04/23 Eplerenone (Eplerenone) 25 Mg Tablet, 25 MG PO AM, TAB 11/04/23 Clopidogrel Bisulfate (Clopidogrel) 75 Mg Tablet, 75 MG PO DAILY, TAB 11/04/23 Lisinopril (Lisinopril) 40 Mg Tablet, 40 MG PO DAILY, TAB 11/04/23 Atorvastatin Calcium (LIPITOR) 80 Mg Tablet, 80 MG PO AM, #0.5 TAB 11/04/23 Empagliflozin (Jardiance) 25 Mg Tablet, 25 MG PO DAILY for TAKE ONE HALF PO , TAB 11/04/23 Cholecalciferol (Vitamin D3) (Vitamin D3) 2,000 Unit Tablet, 2000 UNITS PO AM, TAB 12/18/15 Metformin HCl (Metformin HCl) 500 Mg Tablet, 500 MG PO BID, TAB 12/18/15 Amlodipine Besylate (Amlodipine Besylate) 5 Mg Tablet, 5 MG PO BID, TAB 12/18/15 Past Medical History Past Medical History: Cancer, Diabetes-Type II, High Cholesterol, Heart Disease, Hypertension Additional Past Medical Hx: COLON CANCER 8 YEARS AGO Surgical History: CABG, Other Surgical History Other: COLON RESECTION Social History: Other RN Note Reviewed/Agreed w/PFSH: Yes Review of System Dictation Constitutional: Negative for fever,chills, and weight loss Eyes: Negative for injury, pain,redness, and discharge ENT: Negative for injury,pain or swelling Cardiovascular: Negative for chest pain, palpitations, and edema Respiratory: Negative for shortness of breath, cough, and wheezing, Abdomen/GI: Negative for abdominal pain, nausea, vomiting, diarrhea, and constipation Back: Negative for injury and pain : Negative for injury, bleeding and discharge MS/Extremity: Negative for injury and deformity Skin: Negative for rash, and discoloration positive for sutures Neuro: Negative for headache, weakness, numbness, tingling, and seizure Psych: Negative for suicide ideation, homicidal ideation, and hallucinations Initial Vital Sign VS Vital Signs Date Time Temp Pulse Resp B/P (MAP) Pulse Ox O2 Delivery O2 Flow Rate FiO2 09/09/25 14:06 98.1 81 18 134/87 98 Physical Exam Dictation Vital Signs reviewed General Appearance: Alert, oriented x 3, no acute distress, well developed, nourished. Head and Face: non-traumatic. Eyes: PERRL, pink conjunctivas, eyelid no trauma, anterior chamber with arcus senilis. Ears: Pinnas intact and no signs of trauma or erythema ear canals clear and no discharge TM no erythema Nose: No discharge, no bleeding. Oropharynx: Mouth normal, tongue pink. pharynx clear,no erythema, tonsils no exudates, no abscesses noted, mucous membrane moist Neck: Supple, non-tender, no thyromegaly, no masses, no JVD, no bruits Breast:Deferred Chest:No tenderness, no crepitus, no paradoxical movement, no retractions Lungs:Clear, well-ventilated, symmetric, no rales, no wheezing, no rhonchi, no stridor, good breath sounds bilaterally Heart: Regular rate, regular rhythm, no murmur, no gallops Vascular: no peripheral edema, Abdomen: Soft, positive bowel sounds, nondistended, no guarding, nontender, no rebound, no masses no hepatomegaly, no splenomegaly, no Leal's sign, no hernias. Rectal: Deferred Genital: Deferred Neurological: Normal speech, motor function intact, sensory function intact Musculoskeletal: Neck nontender, full range of motion, back nontender, full range of motion, Extremities: nontender, full range of motion Skin: Color pink, dry, no turgor, no rash, no lacerations, no abrasions, no contusions., scabbing to right forehead, two sutures in place Lymphatic: Deferred Results (Laboratory/Radiology) Labs Reviewed?: Yes ED Course ED Course Vital Signs Date Time Temp Pulse Resp B/P (MAP) Pulse Ox O2 Delivery O2 Flow Rate FiO2 09/09/25 14:06 98.1 81 18 134/87 98 Medical Decision Making MDM The patient is a 70-year-old male with a history of CAD, hypothyroidism, diabetes who presents to the emergency department for suture removal. Patient had two sutures done on September 03 after an accidental fall. Patient denies any fevers, denies any nausea or vomiting, or any complications from the fall. Sutures were removed. Patient tolerated procedure well. Wound is healing well. There is no drainage or erythema. Wound has scabbed. Patient otherwise in no acute distress, nontoxic appearance. Differential diagnosis: Cellulitis, suture removal, abrasion Need for hospitalization: Patient does not meet criteria for hospitalization. There are no social concerns with this patient. DX & DISP Disposition: Discharge Departure Impression: Primary Impression: Visit for suture removal Condition: Stable Additional Instructions: Please continue to keep your wound clean and dry. Monitor for any signs of infection. Continue taking your medications. If anything worsens please return to ER. FOLLOW-UP WITH PRIMARY CARE PROVIDER IN 1 TO 2 DAYS. TAKE MEDICATIONS DIRECTED HERE IN THE EMERGENCY ROOM. OKAY TO CONTINUE HOME MEDICATIONS UNLESS OTHERWISE DISCUSSED DURING YOUR VISIT IN THE EMERGENCY ROOM TODAY. RETURN TO YOUR NEAREST EMERGENCY ROOM IF SYMPTOMS WORSEN OR IF THERE IS NO IMPROVEMENT. CALL 911 IF YOU NEED IMMEDIATE ASSISTANCE. TAKE TYLENOL [id number] NEEDED AND IF NO CONTRAINDICATIONS ARE PRESENT. INCREASE ORAL HYDRATION. A WOUND CULTURE OR URINE CULTURE WAS ORDERED HERE IN THE EMERGENCY ROOM DEPARTMENT PLEASE FOLLOW-UP WITH PRIMARY CARE PROVIDER AND ADVISE THEM TO GET REPEAT PORTS FROM OUR FACILITY. IF YOU HAD ANY MARTI WRAP/SPLINTS THAT WERE APPLIED HERE, PLEASE DO NOT REMOVE THEM UNTIL YOU SEE YOUR PRIMARY CARE OR SPECIALTY. Referrals: SELF,REFERRAL (PCP) Time of Disposition: 14:15 I have reviewed the case, and I agree with, Diagnosis and Plan ESTEBAN VELIZ LAST SORTER Sep 09, 2025 14:15
== END 2025-09-09 14:19 | disposition home or self-care (01) ==
LOC: EDH 14:02
DX: S01.81XD Laceration without foreign body of other part of head, subsequent encounter (principal); Z48.02 Encounter for removal of sutures; E11.9 Type 2 diabetes mellitus without complications; E78.00 Pure hypercholesterolemia, unspecified; I11.9 Hypertensive heart disease without heart failure; Z79.02 Long term (current) use of antithrombotics/antiplatelets; Z79.84 Long term (current) use of oral hypoglycemic drugs; Z79.899 Other long term (current) drug therapy; Z85.038 Personal history of other malignant neoplasm of large intestine; Z95.1 Presence of aortocoronary bypass graft; X58.XXXD Exposure to other specified factors, subsequent encounter
CPT/HCPCS: 99282